=== PATIENT | male | born 1975 | race Caucasian/White ===

== ENCOUNTER 2017-03-12 18:59 | Emergency (ER) | payer OTHER ==
[~2017-03-12] VITALS: Ht 200.7 cm; Wt 195.0 kg
[2017-03-12] MEDS ORDERED: CEFAZOLIN PMX 1GM/50ML 50 ML IVPB ONE (19:30)
[2017-03-12] MEDS ORDERED: SODIUM CHLORIDE FLUSH 10ML SYR IVF ONE (19:30)
[2017-03-12] MEDS ORDERED: ASPI-515 PO (19:40)
[2017-03-12] MEDS ORDERED: HYDR12.53 PO (19:40)
[2017-03-12] MEDS ORDERED: METF500T4 PO (19:40)
[2017-03-12] MEDS ORDERED: CEFAZOLIN PMX 1GM/50ML 50 ML ONE (19:43)
[2017-03-12 20:01] LABS: BLOOD UREA NITROGEN 14 mg/dL (7-18)
[2017-03-12 20:08] LABS: HEMATOCRIT 43.2 % (39.2-51.8); HEMOGLOBIN 15.1 g/dL (13.7-18.0)
[2017-03-12 21:03] VITALS: BP 147/96
[2017-03-12] MEDS ORDERED: DIPH,PERTUSS(ACELL),TET VAC/PF 0.5 ML IM-VACC ONE (21:14)
[2017-03-12] MEDS ORDERED: DIPHTHERIA-TETANUS ADULT 0.5ML IM-VACC ONE (21:30)
== END 2017-03-12 22:08 | disposition home or self-care (01) ==
LOC: ED 21:55
DX: L03.115 Cellulitis of right lower limb (principal); E11.9 Type 2 diabetes mellitus without complications
CPT/HCPCS: 10060; 36415; 80048; 82040; 83605; 85025; 87040; 90471; 90714; 93971; 96365; 99285; J0690

== ENCOUNTER 2017-03-15 15:12 | Emergency (ER) | payer OTHER ==
[~2017-03-15] VITALS: Ht 200.7 cm; Wt 195.0 kg
[~2017-03-15 15:12] MED LIST: ASPI-515 PO; HYDR12.53 PO; METF500T4 PO
[2017-03-15 15:38] VITALS: BP 155/106
== END 2017-03-15 16:33 | disposition home or self-care (01) ==
LOC: ED 16:10
DX: Z48.01 Encounter for change or removal of surgical wound dressing (principal); E11.9 Type 2 diabetes mellitus without complications
CPT/HCPCS: 99281

== ENCOUNTER 2018-05-31 07:39 | Emergency (ER) | payer OTHER ==
[~2018-05-31] VITALS: Ht 200.7 cm; Wt 186.7 kg
[~2018-05-31 07:39] MED LIST changes: +HYDR12.517 PO; -HYDR12.53 PO; +METF500T17 PO; -METF500T4 PO
[2018-05-31 08:39] LABS: BASOPHILS # (AUTO) 0.02 x10^3/uL (0-0.1); BASOPHILS % (AUTO) 0 % (0-1); EOSINOPHILS # (AUTO) 0.09 x10^3/uL (0-0.4); EOSINOPHILS % (AUTO) 2 % (1-7); LYMPHOCYTES # (AUTO) 0.32 x10^3/uL (1-3.4); LYMPHOCYTES % (AUTO) 8 % (22-44); MD NO; MEAN CORPUSCULAR HEMOGLOBIN 30.6 pg (27.5-34.5); MEAN CORPUSCULAR VOLUME 90.1 fL (81-97); MEAN PLATELET VOLUME 8.7 fL (7.4-10.4); MONOCYTES # (AUTO) 0.37 x10^3/uL (0.2-0.8); MONOCYTES % (AUTO) 10 % (2-9); NEUTROPHILS % (AUTO) 80 % (42-75); PLATELET COUNT 213 x10^3/uL (130-400); RED BLOOD COUNT 5.12 x10^6/uL (4.38-5.82); RED CELL DISTRIBUTION WIDTH 12.6 % (9.4-14.8)
[2018-05-31 08:46] LABS: ALBUMIN 3.2 g/dL (3.4-5.0); ANION GAP 7 mmol/L (5-15); CALCIUM 8.5 mg/dL (8.5-10.1); CHLORIDE 99 mmol/L (98-107); CREATININE 1.31 mg/dL (0.7-1.3)
[2018-05-31 08:50] LABS: MICROSCOPIC INDICATED
[2018-05-31 09:04] LABS: CULTURE INDICATED? NO
[2018-05-31 09:38] VITALS: BP 159/83
== END 2018-05-31 10:23 | disposition home or self-care (01) ==
LOC: ED 10:14
DX: E11.65 Type 2 diabetes mellitus with hyperglycemia (principal)
CPT/HCPCS: 36415; 80048; 81001; 82040; 85025; 93005; 99284